=== PATIENT | male | born 1935 | race Caucasian/White ===

== ENCOUNTER 2017-06-14 09:05 | Inpatient (IN) | payer MEDICARE ==
[~2017-06-14] VITALS: Ht 177.8 cm; Wt 82.6 kg
--- NOTE | ~2017-06-14 | HP ---
History And Physical [id number] [place]. [address] NAME: BRITTA SPARKS : 33 STATUS : ADM IN [facility]#: [id number] AGE: 82 ADM/REG DATE : 06/14/17 MR#: [id number] REPORT SERV DATE: 06/14/17 DICTATED BY: BRIANNA MARTIN DATE: 06/14/17 REPORT STATUS : Draft TRANSCRIBED BY: MODL DATE: 06/14/17 DATE OF ADMISSION: 06/14/2017 CARDIOLOGY ADMISSION HISTORY AND PHYSICAL IDENTIFYING DATA: The patient is an 82-year-old man, status post coronary artery bypass grafting surgery in year 2004. CHIEF COMPLAINT: Substernal/left-sided chest pain with abrupt onset at approximately 0800 hours this morning. HISTORY OF PRESENT ILLNESS: Mr. Sparks is a pleasant, 82-year-old man with a history of coronary artery disease, status post coronary artery bypass grafting surgery in the year [address] Enio Ly. The patient's graft anatomy is a SAHA to LAD, saphenous vein graft to the 2nd diagonal branch, saphenous vein graft to ramus intermedius, saphenous vein graft to an obtuse marginal branch, and saphenous vein graft to the posterior descending artery. The patient is followed by Dr. Johnny Oropeza. The patient reports that he had chest pain prior to surgery, but that he has had no significant chest pain since coronary artery bypass grafting surgery in 2004. The patient is very active for his age. He plays golf, and hunts. The patient reports that he was walking downstairs to get an article of clothing for his , and had the abrupt onset of a left-sided chest pain after walking back upstairs. The chest pain did not ami after 5 minutes of rest, and the patient called [facility]. The patient's pain continued until they arrived, but abated after a sublingual nitroglycerin tablet. The patient was given nitroglycerin paste on arrival to the emergency room. At this time, the patient is chest pain free. He denies any associated nausea, emesis, diaphoresis, or shortness of breath. The patient reports he was in his usual state of health until this morning. He reports that he has walked the same flight of stairs on an almost daily basis, and has not had any similar symptoms recently. PAST MEDICAL HISTORY: 1. Coronary artery disease. 2. History of chronic kidney disease and renal artery stenosis. 3. Hypertension. 4. Dyslipidemia. 5. Hypothyroidism. PAST SURGICAL HISTORY: Significant for bilateral renal artery stenting and coronary artery bypass grafting surgery. The patient also has a stable thoracic aortic aneurysm. FAMILY HISTORY: Negative for early coronary heart disease or sudden cardiac . SOCIAL HISTORY: The patient is . He is retired. The patient has a distant history of smoking, but quit in the year 2003. ALLERGIES: THE PATIENT REPORTS AN ADVERSE REACTION TO STATIN DRUGS, WHICH CAUSED SEVERE WEAKNESS OF HIS GLUTEAL MUSCLES. HE HAS NO OTHER KNOWN MEDICATION ALLERGIES. History And Physical [address] [address] NAME: BRITTA SPARKS : 33 STATUS : ADM IN [facility]#: [id number] AGE: 82 ADM/REG DATE : 06/14/17 MR#: [id number] REPORT SERV DATE: 06/14/17 DICTATED BY: BRIANNA MARTIN DATE: 06/14/17 REPORT STATUS : Draft TRANSCRIBED BY: JARRED DATE: 06/14/17 HOME MEDICATIONS: 1. Aspirin-dose unknown every other day. 2. Carvedilol 6.25 mg p.o. twice daily. 3. Evi 180 mg daily as needed. 4. Synthroid 150 mcg p.o. daily. 5. Multivitamin one tablet daily. REVIEW OF SYSTEMS: A complete 12-system review was performed. This is noncontributory except for the pertinent positives and negatives noted in the history of present illness above. PHYSICAL EXAMINATION: VITAL SIGNS: Temperature is 98.2 degrees Fahrenheit, blood pressure is 157/72 mmHg, heart rate is 76 beats per minute and regular, respirations 18, and oxygen saturation is 90% on room air. GENERAL: The patient is an elderly white man, in no acute distress. EYES: PERRL, EOMI, clear conjunctiva. HEAD/MNT: NCAT with moist mucous membranes and grossly normal hard and soft palate. NECK: Supple with no obvious thyromegaly or lymphadenopathy CARDIOVASCULAR: There is a regular rhythm with normal S1 and physiologically split second heart sound. No clinical significant murmurs could be appreciated. The jugular venous pressure appears normal. PMI - normal location and character. No carotid bruits noted bilaterally. PULMONARY: Clear to auscultation bilaterally with no wheezing, rales or rhonchi, or dullness to percussion. Non-labored. ABDOMINAL: Soft, non-tender, non-distended with no hepatosplenomegaly noted. EXTREMITIES: There is no clubbing, cyanosis or edema. A 2+ right common femoral artery pulse is noted. MUSCULOSKELETAL: Grossly normal strength and range of motion in all extremities INTEGUMENTARY: Skin appears intact with no bruises, wounds or active lesions noted NEURO/PSYC: Alert and oriented x3, with no dysarthria, facial droop or lateralizing weakness noted. DIAGNOSTIC STUDIES: 12-lead EKG: The 12-lead EKG shows normal sinus rhythm with nonspecific ST/T-wave abnormalities, and no other significant changes. LABORATORY DATA: Cell count show a white blood cell count of 10.1, hemoglobin 13.5, hematocrit 41, and platelets 186. PTT is 35. INR is 1.2. Electrolytes show a sodium of 138, potassium 4.1, chloride is 107, CO2 is 26, BUN 21, creatinine is 1.3, calcium is 8.6, magnesium 2.2. Troponin I is 0.03 x2. CHEST X-RAY: This shows changes of median sternotomy with mild pulmonary vascular congestion and no other abnormality. ASSESSMENT AND PLAN: 1. Unstable angina: The patient will be started on a heparin drip. He will continue History And Physical [address] [address] NAME: BRITTA SPARKS : 33 STATUS : ADM IN [facility]#: [id number] AGE: 82 ADM/REG DATE : 06/14/17 MR#: [id number] REPORT SERV DATE: 06/14/17 DICTATED BY: BRIANNA MARTIN DATE: 06/14/17 REPORT STATUS : Draft TRANSCRIBED BY: JARRED DATE: 06/14/17 carvedilol. Continue aspirin. The patient will proceed with cardiac catheterization and coronary angiography/bypass graft angiography. Should the patient have intervenable disease, there are no overt contraindications to percutaneous coronary intervention. The patient has no bleeding disorders and no need for noncardiac surgery in the next year. We will make further recommendations pending the results of the patient's cardiac catheterization. 2. Hypertension-borderline controlled: We will increase carvedilol if needed to maintain blood pressure less than 150/90 mmHg. 3. Dyslipidemia: We will discuss an alternative trial of statin drug versus PCSK9 inhibitor or other therapies. [facility] Brianna Martin MD / [id number] CC: Brianna Martin MD
[~2017-06-14 09:05] MED LIST: MULTIPLE VIT PO; SYN125 PO; [UNRECOGNIZED DRUG - REMARK] PO
[2017-06-14 10:00] LABS: BASOPHILS 0.1 %; BASOPHILS ABSOLUTE 0.01 10/3/uL (0.0-0.16); HEMATOCRIT 40.9 % (40.0-51.0); HEMOGLOBIN 13.5 g/dL (13.6-17.8); IMMATURE GRANULOCYTES 0.4 %; IMMATURE GRANULOCYTES ABSOLUTE 0.04 10/3/uL (0.0-0.11); LYMPHOCYTES 13.2 %; LYMPHOCYTES ABSOLUTE 1.33 10/3/uL (0.67-4.30); MEAN CORPUSCULAR HEMOGLOB 30.5 pg (26.0-34.0); MEAN PLATELET VOLUME 10.6 fL (9.2-13.0); MONOCYTES ABSOLUTE 0.91 10/3/uL (0.21-1.20); NEUTROPHILS 74.3 %; NEUTROPHILS ABSOLUTE 7.49 10/3/uL (2.02-8.40); PLATELET COUNT 186 10/3/uL (150-400); RBC DISTRIBUTION WIDTH 13.7 % (12.0-16.0); RED CELL COUNT 4.42 10/6/uL (4.7-6.1); WHITE BLOOD CELLS 10.1 10/3/uL (4.5-10.5)
[2017-06-14 10:01] LABS: MANUAL DIFF NO %; MEAN CORPUSCULAR VOLUME 92.5 fL (80-100)
[2017-06-14 10:08] LABS: INTERNATIONAL NORMAL RATI 1.2 UNITS (-); PARTIAL THROMBO TIME 35.4 SEC (22.5-37.2); PROTIME (NOT ORD) 14.6 SEC (12.0-14.5)
[2017-06-14] MEDS ORDERED: COREG6 PO (10:16)
[2017-06-14] MEDS ORDERED: SYN.15 PO (10:16)
[2017-06-14] MEDS ORDERED: ALLEGRA180 PO (10:17)
[2017-06-14 10:18] LABS: BUN (BLOOD UREA NITROGEN) 21 MG/DL (6-23); CALCIUM, SERUM 8.6 MG/DL (8.5-10.4); CHEST PAIN PROFILE TAT 0 Hrs 22 Mins; CHLORIDE, SERUM 107 MMOL/L (96-112); CO2 (CARBON DIOXIDE) 26 MMOL/L (24-34); CREATININE 1.31 MG/DL (0.70-1.30); GFR AFRICAN AMERICAN 58 ML/MIN (>=60); GFR NON AFRICAN AMERICAN 50 ML/MIN (>=60); GLUCOSE, SERUM 95 MG/DL (60-99); POTASSIUM, SERUM 4.1 MMOL/L (3.5-5.3); SODIUM, SERUM 138 MMOL/L (135-148); TROPONIN I 0.03 NG/ML (<0.05)
[2017-06-14] MEDS ORDERED: VITAMINS/SUPPLEMENTS PO (10:18)
[2017-06-14 13:15] LABS: TROPONIN I 0.03 NG/ML (<0.05)
[2017-06-15] MEDS ORDERED: NTG150 SL (08:32)
[2017-06-15] MEDS ORDERED: CRESTOR10 PO (08:32)
[2017-06-15] MEDS ORDERED: BRILINTA90 MG PO (08:33)
[2017-06-15] MEDS ORDERED: ZESTRIL2.5 MG PO (08:33)
== END 2017-06-15 10:30 | disposition home or self-care (01) | DRG 247 ==
LOC: ER 09:05 → 5NO 11:21 → SSU1 11:21
PROVIDERS: Emergency Medicine
PROC: 027034Z Dilation of Coronary Artery, One Artery with Drug-eluting Intraluminal Device, Percutaneous Approach (ICD-10-PCS; principal; 2017-06-14)
PROC: 4A023N7 Measurement of Cardiac Sampling and Pressure, Left Heart, Percutaneous Approach (ICD-10-PCS; 2017-06-14)
PROC: B2131ZZ Fluoroscopy of Multiple Coronary Artery Bypass Grafts using Low Osmolar Contrast (ICD-10-PCS; 2017-06-14)
PROC: B2111ZZ Fluoroscopy of Multiple Coronary Arteries using Low Osmolar Contrast (ICD-10-PCS; 2017-06-14)
DX: I25.110 Atherosclerotic heart disease of native coronary artery with unstable angina pectoris (principal); I42.9 Cardiomyopathy, unspecified; I24.9 Acute ischemic heart disease, unspecified; E03.9 Hypothyroidism, unspecified; I12.9 Hypertensive chronic kidney disease with stage 1 through stage 4 chronic kidney disease, or unspecified chronic kidney disease; N18.2 Chronic kidney disease, stage 2 (mild); E78.5 Hyperlipidemia, unspecified; Z95.1 Presence of aortocoronary bypass graft; Z79.82 Long term (current) use of aspirin; Z79.899 Other long term (current) drug therapy; Z91.09 Other allergy status, other than to drugs and biological substances; Z87.891 Personal history of nicotine dependence
CPT/HCPCS: 71010; 80048; 80061; 83735; 84484; 85025; 85347; 85610; 85730; 93005; 93306; 93459; 99152; 99153; 99285; A9270-GY; C1725; C1760; C1769; C1874; C1887; C1894; C9600; J0583; J2250; J2405; J3010; Q9967